=== PATIENT | female | born 1980 | race Caucasian/White ===

== ENCOUNTER 2018-07-23 17:54 | Emergency (ER) | payer SELFPAY ==
--- NOTE | 2018-07-23 18:08 | ER Document Report ---
ED Medical Screen (RME) - General Chief Complaint: Flank Pain Stated Complaint: ABDOMINAL PAIN Time Seen by Provider: 07/23/18 18:04 Notes: 37-year-old female patient reports onset Brian night of feeling bloated, then cramping on her right side. She states it was so severe she could not walk so she lay in bed for 5 days. She stated whenever she would try to walk, it seemed to make her abdomen bloat worse. She did go to an urgent care today and was diagnosed with a kidney infection and told to come to the emergency room. She states she has had a low-grade fever. Her last menstrual period was 2 months ago and they are quite irregular. The urgent care did do a urine test which she states was negative. I have greeted and performed a rapid initial assessment of this patient. A comprehensive ED assessment and evaluation of the patient, analysis of test results and completion of the medical decision making process will be conducted by additional ED providers. TRAVEL OUTSIDE OF THE [place] IN LAST 30 DAYS: No - Related Data Allergies/Adverse Reactions: No Known Allergies Allergy (Verified 07/23/18 17:55) Past Medical History - Social History Frequency of alcohol use: None Drug Abuse: None Renal/ Medical History: Denies: Hx Peritoneal Dialysis Past Surgical History: Reports: Hx Section Physical Exam - Vital signs Vitals: Temp Pulse Resp BP Pulse Ox 98.3 F 128 H 16 138/85 H 100 07/23/18 17:58 07/23/18 17:58 07/23/18 17:58 07/23/18 17:58 07/23/18 17:58 Course - Vital Signs Vital signs: Temp Pulse Resp BP Pulse Ox 98.3 F 128 H 16 138/85 H 100 07/23/18 17:58 07/23/18 17:58 07/23/18 17:58 07/23/18 17:58 07/23/18 17:58 - Laboratory Result Diagrams: 07/23/18 18:17 07/23/18 18:17 Laboratory results interpreted by me: 07/23/18 07/23/18 07/23/18 18:17 18:17 18:17 WBC 15.8 H Hgb 11.2 L Hct 33.5 L Absolute Neutrophils 12.3 H VBG pH VBG pCO2 Glucose 117 H Total Bilirubin 2.3 H Direct Bilirubin 1.2 H Urine Protein 100 H Urine Ketones 20 H Urine Nitrite POSITIVE H Urine Urobilinogen 4.0 H Urine Ascorbic Acid 40 H 07/23/18 19:20 WBC Hgb Hct Absolute Neutrophils VBG pH 7.46 H VBG pCO2 33.7 L Glucose Total Bilirubin Direct Bilirubin Urine Protein Urine Ketones Urine Nitrite Urine Urobilinogen Urine Ascorbic Acid
[2018-07-23 18:32] LABS: ABSOLUTE LYMPHOCYTES (AUTO) 2.4 10^3/uL (0.5-4.7); ABSOLUTE MONOCYTES (AUTO) 1.1 10^3/uL (0.1-1.4); ABSOLUTE NEUT (AUTO) 12.3 10^3/uL (1.7-8.2); BASOPHILS % (AUTO) 0.3 % (0-2); EOSINOPHILS % (AUTO) 0.2 % (0-6); HEMATOCRIT 33.5 % (36.0-47.0); HEMOGLOBIN 11.2 g/dL (12.0-15.5); LYMPHOCYTES % (AUTO) 14.9 % (13-45); MEAN CORPUSCULAR HEMOGLOBIN 28.3 pg (27.0-33.4); MEAN CORPUSCULAR HGB CONC 33.4 g/dL (32.0-36.0); MEAN CORPUSCULAR VOLUME 85 fl (80-97); MONOCYTES % (AUTO) 7.1 % (3-13); PLATELET COUNT 354 10^3/uL (150-450); RED BLOOD COUNT 3.95 10^6/uL (3.72-5.28); RED CELL DISTRIBUTION WIDTH 13.1 % (11.5-14.0); SEGMENTED NEUTROPHILS % (AUTO) 77.5 % (42-78); TOTAL CELLS COUNTED % (AUTO) 100 %; WHITE BLOOD COUNT 15.8 10^3/uL (4.0-10.5)
[2018-07-23 18:52] LABS: ALANINE AMINOTRANSFERASE 29 U/L (9-52); ALBUMIN 3.8 g/dL (3.5-5.0); ALKALINE PHOSPHATASE 94 U/L (38-126); ANION GAP 16 (5-19); ASPARTATE AMINO TRANSFERASE 23 U/L (14-36); BILIRUBIN,DIRECT 1.2 mg/dL (0.0-0.4); BILIRUBIN,TOTAL 2.3 mg/dL (0.2-1.3); BLOOD UREA NITROGEN 15 mg/dL (7-20); CALCIUM 9.4 mg/dL (8.4-10.2); CARBON DIOXIDE 25 mmol/L (22-30); CHLORIDE 101 mmol/L (98-107); GLUCOSE 117 mg/dL (75-110); POTASSIUM 4.4 mmol/L (3.6-5.0); SODIUM 141.7 mmol/L (137-145); TOTAL PROTEIN 7.1 g/dL (6.3-8.2)
[2018-07-23 18:57] LABS: APPEARANCE,URINE SLIGHTLY-CLOUDY; BILIRUBIN,URINE NEGATIVE (NEGATIVE); COLOR,URINE AMBER; GLUCOSE, URINE NEGATIVE (NEGATIVE); KETONES,URINE 20 mg/dL (NEGATIVE); LEUKOCYTE ESTERASE,URINE NEGATIVE (NEGATIVE); NITRITE,URINE POSITIVE (NEGATIVE); PROTEIN,URINE 100 mg/dL (NEGATIVE); URINE SPECIFIC GRAVITY 1.031
[2018-07-23] MEDS ORDERED: RINGERS SOLUTION,LACTATED 1,000 ML IV ONE (19:10)
[2018-07-23] MEDS ORDERED: ONDANSETRON HCL INJ/PF 4 MG/2 ML SDV IV ONE (19:11)
[2018-07-23] MEDS ORDERED: PIPERACILLIN/TAZOBACTAM 3.375 GM VIAL IV ONE (19:11)
--- NOTE | 2018-07-23 19:16 | ER Document Report ---
ED General - General Chief Complaint: Flank Pain Stated Complaint: ABDOMINAL PAIN Time Seen by Provider: 07/23/18 18:04 Notes: Patient is a 37-year old female without chronic medical problems who presents with 5 days of progressively worsening generalized abdominal pain. She states the pain is a severe, global, aching, stabbing pain. He states any form of movement worsens the pain. She also notes that she has had increasing abdominal swelling over that period of time. She was seen in urgent care, diagnosed with possible urinary tract infection but referred to the emergency department given her degree of pain. Patient denies any history of similar symptoms in the past. Nothing improves her pain. She denies fever but states that she is felt achy and generally terrible. She has not seen her general doctor. She denies vaginal bleeding or vaginal discharge. She denies chest pain or cough. TRAVEL OUTSIDE OF THE [place] IN LAST 30 DAYS: No - Related Data Allergies/Adverse Reactions: No Known Allergies Allergy (Verified 07/23/18 17:55) Past Medical History - General Information source: Patient - Social History Smoking Status: Never Smoker Frequency of alcohol use: None Drug Abuse: None Lives with: Spouse/Significant other Family History: Reviewed & Not Pertinent Patient has suicidal ideation: No Patient has homicidal ideation: No Renal/ Medical History: Denies: Hx Peritoneal Dialysis Past Surgical History: Reports: Hx Section Review of Systems - Review of Systems Notes: Constitutional: Negative for fever. HENT: Negative for sore throat. Eyes: Negative for visual changes. Cardiovascular: Negative for chest pain. Respiratory: Negative for shortness of breath. Gastrointestinal: Positive for abdominal pain and nausea Genitourinary: Negative for dysuria. Musculoskeletal: Negative for back pain. Skin: Negative for rash. Neurological: Negative for headaches, weakness or numbness. 10 point ROS negative except as marked above and in HPI. Physical Exam - Vital signs Vitals: Temp Pulse Resp BP Pulse Ox 98.3 F 128 H 16 138/85 H 100 07/23/18 17:58 07/23/18 17:58 07/23/18 17:58 07/23/18 17:58 07/23/18 17:58 Interpretation: Tachycardic Notes: PHYSICAL EXAMINATION: GENERAL: Patient appears unwell, very uncomfortable HEAD: Atraumatic, normocephalic. EYES: Pupils equal round and reactive to light, extraocular movements intact, sclera anicteric, conjunctiva are normal. ENT: nares patent, oropharynx clear without exudates. Moderate dry mucous membranes. NECK: Normal range of motion, supple without lymphadenopathy LUNGS: Breath sounds clear to auscultation bilaterally and equal. No wheezes rales or rhonchi. HEART: Regular tachycardia without murmurs ABDOMEN: Distended, firm abdomen. Diffuse tenderness to palpation without localization. FAST exam with trace fluid under the liver and spleen. EXTREMITIES: Normal range of motion, no pitting or edema. No cyanosis. NEUROLOGICAL: No focal neurological deficits. Moves all extremities spontaneously and on command. PSYCH: Normal mood, normal affect. SKIN: Warm, Dry, normal turgor, no rashes or lesions noted. Course - Re-evaluation Re-evalutation: 07/23/18 19:12 Documentation is somewhat delayed as upon my initial evaluation the patient I was concerned that she had an acute surgical abdomen. I did get an ultrasound, she does have trace free fluid underneath her liver and multiple appreciable areas of dilated small bowel loops. The patient has peritoneal signs on exam including abdominal distention, firmness and diffuse guarding throughout. The patient in triage did not yet have an IV placed. I have immediately communicated to the nursing staff that the patient needs an IV placed immediately and is to be sent to CAT scan for CT of the abdomen and pelvis as I am primarily concerned about the possibility of an acute perforated appendicitis , alternative colitis with perforation, possible acute bowel obstruction. The patient however appears extremely uncomfortable, ill, high risk for decompensation. I have ordered IV fluids, IV morphine, Zofran, Zosyn. The patient will immediately go for CT abdomen pelvis. She will be placed on potline monitor. She is notably tachycardic at the time of my assessment, heart rate 130. Anticipate need for an emergent surgical consultation. Will continue to reassess at regular intervals. 07/23/18 19:47 CT scan does show an extremely large, cystic mass throat with the entirety of the abdomen. I did call and discuss immediately with the radiologist. 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 I contacted [facility] to request transfer although they state they do not have a PROJECT MANAGER/DESIGN MANAGER oncologist currently. I have then contacted [facility] and again requested PROJECT MANAGER/DESIGN MANAGER oncology. Patient has been updated. Pain is improved after receiving IV morphine. She is n.p.o. Will continue to reassess at regular intervals that she does remain tachycardic, tachypneic and quite uncomfortable 07/23/18 20:58 I have discussed this case at length with the accepting PROJECT MANAGER/DESIGN MANAGER oncologist at [facility] . Patient has been accepted in transfer. On multiple repeat abdominal assessments the patient no longer has acute peritoneal signs after receiving analgesia. 2200-transport has arrived and patient is appropriate and stable for transport. - Vital Signs Vital signs: Temp Pulse Resp BP Pulse Ox 98.3 F 20 L 27 H 128/85 H 96 07/23/18 21:00 07/23/18 21:00 07/23/18 21:01 07/23/18 21:01 07/23/18 21:01 - Laboratory Result Diagrams: 07/23/18 18:17 07/23/18 18:17 Laboratory results interpreted by me: 07/23/18 07/23/18 07/23/18 18:17 18:17 18:17 WBC 15.8 H Hgb 11.2 L Hct 33.5 L Absolute Neutrophils 12.3 H VBG pH VBG pCO2 Glucose 117 H Total Bilirubin 2.3 H Direct Bilirubin 1.2 H Urine Protein 100 H Urine Ketones 20 H Urine Nitrite POSITIVE H Urine Urobilinogen 4.0 H Urine Ascorbic Acid 40 H 07/23/18 19:20 WBC Hgb Hct Absolute Neutrophils VBG pH 7.46 H VBG pCO2 33.7 L Glucose Total Bilirubin Direct Bilirubin Urine Protein Urine Ketones Urine Nitrite Urine Urobilinogen Urine Ascorbic Acid - Diagnostic Test Radiology reviewed: Image reviewed, Reports reviewed Radiology results interpreted by me: 07/24/18 00:17 CT abdomen pelvis: Extremely large cystic mass Critical Care Note - Critical Care Note Total time excluding time spent on procedures (mins): 38 Comments: Critical care time spent obtaining history from patient or surrogate, discussions with consultants, development of treatment plan with patient or surrogate, evaluation of patient's response to treatment, examination of patient , ordering and performing treatments and interventions, ordering and review of laboratory studies, re-evaluation of patient's condition, ordering and review of radiographic studies and review of old charts Discharge - Discharge Clinical Impression: Generalized abdominal pain, Tachycardia Abdominal mass Qualifiers: Abdominal location: unspecified location Qualified Code(s): R19.00 - Intra- abdominal and pelvic swelling, mass and lump, unspecified site Condition: Fair Disposition: [place]
[2018-07-23 19:46] LABS: VENOUS BLOOD BASE EXCESS -0.1 mmol/L; VENOUS BLOOD HCO3 23.4 mmol/L (20-32); VENOUS BLOOD PCO2 33.7 mmHg (35-63); VENOUS BLOOD PH 7.46 (7.30-7.42)
[2018-07-23] MEDS: MORPHINE SULFATE 10 MG/ML INJ IV PRN ×2 (19:56→20:50)
--- NOTE | 2018-07-23 20:17 | RADIOLOGY REPORT (SQ) ---
EXAM DESCRIPTION: CT ABD/PELVIS WITH IV ONLY COMPLETED DATE/TIME: 07/23/2018 7:40 pm REASON FOR STUDY: abdominal pain, sepsis COMPARISON: None. TECHNIQUE: CT scan of the abdomen and pelvis performed using helical scanning technique with dynamic intravenous contrast injection. No oral contrast. Images reviewed with lung, soft tissue, and bone windows. Reconstructed coronal and sagittal MPR images reviewed. Delayed images for evaluation of the urinary system also acquired. All images stored on PACS. All CT scanners at this facility use dose modulation, iterative reconstruction, and/or weight based d osing when appropriate to reduce radiation dose to as low as reasonably achievable (ALARA). [facility]: Dose Right [facility]: CareDose [facility]: Dose Right [facility]: Teradose 4D [facility]: Smart Mayomi RENAL FUNCTION: None required. The patient is less than 50 years old. RADIATION DOSE: CT Rad equipment meets quality standard of care and radiation dose reduction techniq ues were employed. CTDIvol: 20.0 - 21.0 mGy. DLP: 2452 mGy-cm.. LIMITATIONS: None. FINDINGS: LOWER CHEST: No significant findings. No nodules or infiltrates. LIVER: Normal size. No masses. No dilated ducts. SPLEEN: Normal size. No focal lesions. PANCREAS: No masses. No significant calcifications. No adjacent inflammation or peripancreatic fluid collections. Pancreatic duct not dilated. GALLBLADDER: No identified stones by CT criteria. No inflammatory changes to suggest cholecystitis. ADRENAL GLANDS: No significant masses or asymmetry. RIGHT KIDNEY AND URETER: No solid masses. No significant calcification. No hydronephrosis or hydroure ter. LEFT KIDNEY AND URETER: No solid masses. No significant calcification. No hydronephrosis or hydrouret er. AORTA AND VESSELS: No aneurysm. No dissection. Renal arteries, SMA, celiac without stenosis. RETROPERITONEUM: No retroperitoneal adenopathy, hemorrhage or masses. BOWEL AND PERITONEAL CAVITY: Large septated low density mass fills the abdomen. This measures over 2 0 cm AP dimension by over 30 cm transverse dimension. More than 30 cm craniocaudal extent as well. Multiloculated septated predominantly cystic or mucinous mass. This displaces bowel loops. No mecha nical bowel obstruction, however. Mild ascites. APPENDIX: Not visualized. PELVIS: The above-noted lesion abuts the uterine fundus. Bladder is decompressed. Trace free fluid. ABDOMINAL WALL: No masses. No hernias. BONES: No significant or acute findings. OTHER: No other significant finding. IMPRESSION: 1. Large cystic or mucinous septated mass (greater than 30 cm) fills the abdomen. Presu mably neoplasm of gynecologic/ ovarian origin. Mild ascites. No significant adenopathy. No urinary or bowel obstruction evident. TECHNICAL DOCUMENTATION: JOB ID: [id number] Quality ID # [id number]: Final reports with documentation of one or more dose reduction techniques (e.g., Au tomated exposure control, adjustment of the mA and/or kV according to patient size, use of iterative reconstruction technique) 2010 [employer]- All Rights Reserved Reading location - IP/workstation name: [email or web address]
[2018-07-23 22:00] VITALS: BP 128/85
== END 2018-07-23 22:06 | disposition short-term general hospital (02) ==
LOC: ER 17:54
DX: R10.84 Generalized abdominal pain (principal); R00.0 Tachycardia, unspecified; R19.00 Intra-abdominal and pelvic swelling, mass and lump, unspecified site; R11.0 Nausea
CPT/HCPCS: 99284; 96361; 96374; 96375; 36415; 87040; 83605; 84703; 85025; 80053; 81001; 82803; 74177; J2270; J2405; J7120; J2543